=== PATIENT | female | born 1990 | race African-American/Black ===

== ENCOUNTER 2017-10-02 20:23 | Emergency (ER) | payer BC | END 2017-10-02 20:34 | disposition left against medical advice (07) | LOC: ERS 20:23 | DX: Z53.21 Procedure and treatment not carried out due to patient leaving prior to being seen by health care provider (principal) ==

== ENCOUNTER 2018-12-24 14:06 | Emergency (ER) | payer BC, SELFPAY | END 2018-12-24 14:40 | disposition home or self-care (01) | LOC: ERS 14:06 | DX: K03.81 Cracked tooth (principal); K02.9 Dental caries, unspecified; F17.210 Nicotine dependence, cigarettes, uncomplicated | CPT/HCPCS: 99282 ==

== ENCOUNTER 2022-01-31 10:55 | Emergency (ER) | payer SELFPAY | END 2022-01-31 11:53 | disposition home or self-care (01) | LOC: ERS 10:55 | DX: K04.7 Periapical abscess without sinus (principal) | CPT/HCPCS: 99282 ==

== ENCOUNTER 2022-09-21 11:14 | Emergency (ER) | payer SELFPAY ==
[2022-09-21] MEDS ORDERED: Ketorolac Tromethamine 30 MG/ML VIAL ONE (11:57)
[2022-09-21] MEDS ORDERED: Lidocaine 2% PF 5 ML VIAL ONE (12:40)
[2022-09-21] MEDS ORDERED: Bacitracin 1 PK ONE (13:16)
== END 2022-09-21 13:17 | disposition home or self-care (01) ==
LOC: ERS 11:14
DX: L03.012 Cellulitis of left finger (principal); L03.011 Cellulitis of right finger
CPT/HCPCS: 26011; 96372; J1885; J2001